=== PATIENT | female | born 1965 | race African-American/Black ===

== ENCOUNTER → 2019-07-03 | Outpatient (CLI) | payer BC, OTHER ==
[2015-11-27 10:24] VITALS: BP 154/95
[~2019-07-03] MED LIST: AMLO5TAB4 PO; ASPI-482 PO; ATOR20TA58 PO; Metoprolol Tartrate IV; TRAM50TA PO
--- NOTE | 2019-07-03 15:52 | RAD ---
EXAM: Dual energy x-ray absorptiometry (DEXA). HISTORY: Postmenopausal female presents for osteoporosis screening. COMPARISON: None. TECHNIQUE: Dual energy x-ray absorptiometry of the lumbar spine and right hip was performed. Calculation of bone mineral density based on standard deviations above or below the expected young adult normal value (T-score) was completed. FINDINGS: The average bone mineral density in the 1st through 4th lumbar vertebrae is 1.074 g/cmxcm, corresponding with a T-score of -1.2. The average total bone mineral density in the right hip is 0.973 g/cmxcm, corresponding with a T-score of 0.1. IMPRESSION: 1. Osteopenia measured at the lumbar spine. 2. Normal bone mineral density measured at the right hip. Note: Definitions established by the [employer] Organization: 1. Normal: T-score is -1.0 or above. 2. Osteopenia: T-score is between -1.0 and -2.5 . 3. Osteoporosis: T-score is -2.5 or below. Electronically signed by: Nikki Melton MD (07/03/2019 3:49 PM) [place] [id number]
--- NOTE | 2019-07-04 15:44 | RAD ---
DATE: 07/03/2019. EXAM: MAMMO MADELINE SCREENING BILATERAL. HISTORY: Routine mammographic screening. COMPARISON: 10/22/2013. This study was interpreted with the benefit of Computerized Aided Detection (CAD). FINDINGS: Breast Density: HETERO The breast parenchyma is heterogenously dense, which could reduce sensitivity of mammography. Breast parenchyma level C.. Scattered calcifications are benign. The parenchymal pattern is stable. There are no suspicious masses, microcalcifications or architectural distortion. BI-RADS CATEGORY: 2 BENIGN FINDING(S). RECOMMENDED FOLLOW-UP: 12M 12 MONTH FOLLOW-UP. PQRS compliance statement: Patient information was entered into a reminder system with a target due date 07/03/2020 for the next mammogram. Mammography is a sensitive method for finding small breast cancers, but it does not detect them all and is not a substitute for careful clinical examination. A negative mammogram does not negate a clinically suspicious finding and should not result in delay in biopsying a clinically suspicious abnormality. "Our facility is accredited by the [employer] Mammography Program."
== END | disposition home or self-care (01) ==
LOC: DXRAD 15:04
PROVIDERS: ATTEND Physician Assistant Medical
DX: Z12.31 Encounter for screening mammogram for malignant neoplasm of breast (principal); N64.89 Other specified disorders of breast; M85.88 Other specified disorders of bone density and structure, other site; Z78.0 Asymptomatic menopausal state
CPT/HCPCS: 77063; 77067; 77080